=== PATIENT | female | born 1985 | race African-American/Black ===

== ENCOUNTER 2017-03-17 20:08 | Emergency (ER) | payer MEDICAID ==
[~2017-03-17] VITALS: Ht 165.1 cm; Wt 81.6 kg
[2017-03-17 20:20] VITALS: BP_SYST 110
--- NOTE | 2017-03-17 20:50 | NUR ---
Pt came from home, c/o sore throat and bilateral ear pain 09/07. Pt denies any SOB or chest pain, N/V/D. 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
--- NOTE | 2017-03-17 22:17 | NUR ---
MARBELLA Zheng examining patient.
--- NOTE | 2017-03-17 22:23 | NUR ---
Patient refused to sign discharge paper work. Left ED without signing discharge papers.
== END 2017-03-17 22:23 | disposition left against medical advice (07) ==
LOC: SED 20:08
DX: B34.9 Viral infection, unspecified (principal); H92.03 Otalgia, bilateral; Z53.20 Procedure and treatment not carried out because of patient's decision for unspecified reasons
CPT/HCPCS: 99281